=== PATIENT | female | born 1965 | race Caucasian/White ===

== ENCOUNTER → 2017-12-24 | Outpatient (CLI) | payer OTHER ==
[~2017-12-24] MED LIST: ASPIRIN81 M2; COZAAR 50 MG TA50 M2; EFFEXOR XR75 MG; FLEXERIL PO; LOPRESSOR25; MELATONIN5 M4; METFORMIN HCL500 MG; NAPROSYN500 M1 PO; NORVASC10 MG; TRAZODONE HCL100 MG
--- NOTE | 2018-01-10 11:49 | TST ---
[place] [address] TREADMILL STRESS TEST Name: JONI HINES Room: [facility]#: [id number] Admission: 12/24/17 Attend Phys: Marcia Barger Discharge: Date of : 67 Date of Service: 12/24/17 1333 Report #: [id number] THIS REPORT FOR: //name// CC: Gil Marin DATE OF SERVICE: 12/24/2017 ORDERING PHYSICIAN: Odalis Marin, nurse practitioner PROCEDURE: ECG only stress test for the indication of abnormal EKG. CARDIAC HISTORY: Negative. RISK FACTORS: Include age, hyperlipidemia, hypertension, diabetes, and family history. MEDICATIONS: Include losartan, amlodipine, metoprolol. DESCRIPTION OF PROCEDURE: The patient exercised under standard Riley protocol for a total of 5 minutes 56 seconds and achieved 7.05 METS. Resting heart rate is 103. Resting blood pressure is 138/99, peak blood pressure is 213/78 with heart rate of 171 and recovery blood pressure was 138/98 with heart rate of 106. Resting ECG shows a sinus rhythm. There is somewhat poor R-wave progression. During the exercise, there were no diagnostic ST segment abnormalities. There were no arrhythmias. Recovery was normal. IMPRESSION: 1. Clinical portion was negative for ischemia. The patient terminated her test due to fatigue. 2. ECG portion negative for ischemia. 3. Exercise capacity is fair. In conclusion, this ECG only stress test reveals a negative evaluation for myocardial ischemia. <ELECTRONICALLY SIGNED> By: Graeme Quinones MD, FACC 01/10/18 1149 1333 1819 Graeme Quinones MD, FACC /nt
== END ==
LOC: M.CRD 10:29
DX: R94.31 Abnormal electrocardiogram [ECG] [EKG] (principal); E78.5 Hyperlipidemia, unspecified; E11.9 Type 2 diabetes mellitus without complications

== ENCOUNTER 2018-03-22 21:09 | Emergency (ER) | payer OTHER ==
[~2018-03-22] VITALS: Ht 160 cm; Wt 114.8 kg
[2018-03-22] MEDS ORDERED: METFORMIN HCL500 MG (21:45)
[2018-03-22] MEDS ORDERED: COZAAR 50 MG TA50 M2 (21:45)
[2018-03-22] MEDS ORDERED: EFFEXOR XR75 MG (21:45)
[2018-03-22] MEDS ORDERED: MELATONIN5 M4 (21:47)
[2018-03-22] MEDS ORDERED: ASPIRIN81 M2 (21:48)
[2018-03-22] MEDS ORDERED: LOPRESSOR25 (22:05)
[2018-03-22] MEDS ORDERED: TRAZODONE HCL100 MG (22:19)
[2018-03-22] MEDS ORDERED: NORVASC10 MG (22:20)
[2018-03-22] MEDS ORDERED: FLEXERIL PO (23:37)
[2018-03-22] MEDS ORDERED: NAPROSYN500 M1 PO (23:37)
[2018-03-22 23:45] VITALS: BP 148/80
--- NOTE | 2018-03-23 12:58 | EKG ---
[place] [address] ELECTROCARDIOGRAM REPORT Name: JONI HINES Room: [facility]#: [id number] Admission: 03/22/18 Attend Phys: Discharge: 03/22/18 Date of : 67 Report #: [id number] THIS REPORT FOR: //name// [facility] ED Test Date: 2018-03-22 Test Time: 21:59:05 Pat Name: JONI HINES Department: Room: Gender: F Software Publisher: GRISELDA : 1965 Requested By: Heriberto Gomez Order Number: [id number] Reading MD: Gil Albert Measurements Intervals [place] Rate: 82 P: 15 [place]: 180 QRS: -19 QRSD: 96 T: 19 QT: 391 QTc: 457 Interpretive Statements Sinus rhythm Borderline left axis deviation No previous ECG available for comparison Electronically Signed On 03-23-2018 12:58:02 CDT by Gil Albert [email or web address] <ELECTRONICALLY SIGNED> By: Gil Albert MD, [facility] 03/23/18 1258 [id number] [id number] Gil Albert MD, FACC /EPI
== END 2018-03-22 23:45 | disposition home or self-care (01) ==
LOC: M.ERS 21:09
DX: M54.2 Cervicalgia (principal); M25.562 Pain in left knee; M25.532 Pain in left wrist; M25.552 Pain in left hip; I10 Essential (primary) hypertension; E11.9 Type 2 diabetes mellitus without complications; Z90.710 Acquired absence of both cervix and uterus; E78.00 Pure hypercholesterolemia, unspecified; F41.9 Anxiety disorder, unspecified; F32.9 Major depressive disorder, single episode, unspecified; Z88.6 Allergy status to analgesic agent; V49.49XA Driver injured in collision with other motor vehicles in traffic accident, initial encounter; Y93.89 Activity, other specified; Y92.89 Other specified places as the place of occurrence of the external cause; Y99.8 Other external cause status

== ENCOUNTER → 2020-01-24 | Outpatient (CLI) | payer OTHER | LOC: M.RAD 12:39 | PROVIDERS: ATTEND Family Medicine | DX: Z12.31 Encounter for screening mammogram for malignant neoplasm of breast (principal); N63.0 Unspecified lump in unspecified breast; N64.89 Other specified disorders of breast ==

== ENCOUNTER → 2021-01-23 | Outpatient (CLI) | payer OTHER | LOC: M.RAD 10:50 | PROVIDERS: ATTEND Family Medicine | DX: Z12.31 Encounter for screening mammogram for malignant neoplasm of breast (principal); N64.89 Other specified disorders of breast ==